=== PATIENT | male | born 1980 | race Caucasian/White ===

== ENCOUNTER 2016-06-26 20:33 | Inpatient (IN) | payer MEDICARE, OTHER ==
[~2016-06-26] VITALS: Ht 175.3 cm; Wt 87.5 kg
[~2016-06-26 20:33] MED LIST: AMOX125T PO; ASCO500 PO; BACL10TA PO; DIAZ5 PO; DULO60CA44 PO; ENOX100D5 SQ; ESOM20CA31 PO; GABA400C; GABA800T PO; MULT-1192
[2016-06-26] MEDS ORDERED: PROM25VI IM (21:01)
[2016-06-26] MEDS ORDERED: ENOX120D SQ (21:01)
[2016-06-26] MEDS ORDERED: CLON2TAB4 PO (21:01)
[2016-06-26] MEDS ORDERED: GABA-326 PO (21:01)
[2016-06-26] MEDS ORDERED: DICY20TA11 PO (21:01)
[2016-06-26] MEDS ORDERED: FLUT16H NASAL (21:01)
[2016-06-26] MEDS ORDERED: SODIUM CHLORIDE 0.9% 1,000 ML IV ONE (21:45)
[2016-06-26] MEDS ORDERED: MORPHINE SULFATE 4 MG/ML SYRINGE IVP ONE (21:45)
[2016-06-26] MEDS ORDERED: PROMETHAZINE HCL 25 MG/ML VIAL IM ONE (21:45)
[2016-06-26 21:46] LABS: BASOPHILS % (AUTO) 0.3 % (0.0-2.0); EOSINOPHILS % (AUTO) 1.4 % (1.0-6.0); HEMOGLOBIN 12.8 g/dL (13.5-17.5); LYMPHOCYTES # (AUTO) 1.3 K/uL (1.0-4.8); LYMPHOCYTES % (AUTO) 20.4 % (22.0-44.0); MEAN CORPUSCULAR HEMOGLOBIN 27.8 pg (26.0-34.0); MEAN CORPUSCULAR HGB CONC 32.8 G/dL (31.0-37.0); MEAN CORPUSCULAR VOLUME 85 fL (80-100); MONOCYTES # (AUTO) 0.3 K/uL (0.1-1.0); MONOCYTES % (AUTO) 5.6 % (2.0-9.0); NEUTROPHILS # (AUTO) 4.5 K/uL (1.8-7.7); NEUTROPHILS % (AUTO) 72.3 % (40.0-70.0); PLATELET COUNT (AUTO) 238 K/uL (150-450); RED CELL DISTRIBUTION WIDTH 16.3 % (11.5-14.5); WHITE BLOOD COUNT (AUTO) 6.2 K/uL (4.5-11.0)
[2016-06-26] MEDS ORDERED: HYDROmorphone 2 MG/ML SYRINGE IVP ONE (22:15)
[2016-06-26 22:22] LABS: ANION GAP 11 mmol/L (8-16); CALCIUM, TOTAL 9.1 mg/dL (8.8-10.5); CARBON DIOXIDE 28 mmol/L (22-29); CHLORIDE 106 mmol/L (98-107); CREATININE 0.79 mg/dL (0.60-1.30); GLOMERULAR FILTR. RATE CALC > 60 mL/min (>60); POTASSIUM 4.1 mmol/L (3.5-5.1); SODIUM SERUM 145 mmol/L (136-145); UREA NITROGEN, BLOOD 8 mg/dL (7-18)
[2016-06-26 22:26] LABS: APPEARANCE,URINE CLOUDY (CLEAR); GLUCOSE, URINE (UA) NEGATIVE (NEGATIVE); KETONES,URINE NEGATIVE (NEGATIVE); LEUKOCYTE ESTERASE ,URINE LARGE (NEGATIVE); OCCULT BLOOD,URINE NEGATIVE (NEGATIVE); PH,URINE 5.5 (5.0-8.0); PROTEIN,URINE NEGATIVE (NEGATIVE)
[2016-06-26 22:37] LABS: ALANINE AMINOTRANSFERASE 30 U/L (12-78); ASPARTATE AMINOTRANSFERASE 17 U/L (15-37); BILIRUBIN,TOTAL 0.5 mg/dL (0.1-1.0); TOTAL PROTEIN, SERUM 8.3 g/dL (6.4-8.2)
[2016-06-26] MEDS ORDERED: IOVERSOL 320 MG/ML 100 ML VIAL ONE (22:44)
[2016-06-26] MEDS ORDERED: SODIUM CHLORIDE 0.9% 100 ML ONE (22:44)
[2016-06-26 22:48] LABS: RBC,URINE 0-2 /HPF (0-2); WBC,URINE 51-100 /HPF (0-5)
[2016-06-26 22:49] LABS: SQUAMOUS EPITHELIAL CELL,UR Rare /LPF (None Seen)
[2016-06-27] MEDS ORDERED: CefTRIAXone 1 GM/DEXTROSE 50 ML IV ONE
[2016-06-27] MEDS ORDERED: ACETAMINOPHEN 325 MG TABLET PO PRN (00:15)
[2016-06-27] MEDS ORDERED: 0.9% SODIUM CHLORIDE 10 ML SYRINGE IVP PRN ×2 (00:15→12:15)
[2016-06-27] MEDS: HYDROmorphone 2 MG/ML SYRINGE IVP PRN ×6 (02:08→21:38)
[2016-06-27 08:24] VITALS: BP 106/64
[2016-06-27] MEDS ORDERED: HYDROmorphone 2 MG/ML SYRINGE IVP PRN (09:00)
[2016-06-27] MEDS ORDERED: PANTOPRAZOLE SODIUM 40 MG DR TABLET PO SCH (11:00)
[2016-06-27] MEDS: ENOXAPARIN SODIUM 60 MG/0.6 ML PF SYRINGE SQ SCH (11:00)
[2016-06-27] MEDS: DICYCLOMINE HCL 20 MG TABLET PO SCH ×3 (11:01→21:37)
[2016-06-27] MEDS: ClonazePAM 1 MG TABLET PO SCH ×4 (11:02→21:36)
[2016-06-27] MEDS: BACLOFEN 10 MG TABLET PO SCH ×4 (11:02→21:33)
[2016-06-27] MEDS: DULoxetine HCL 60 MG CAPSULE PO SCH (11:03)
[2016-06-27] MEDS ORDERED: PROMETHAZINE HCL 25 MG/ML VIAL IM SCH (11:15)
[2016-06-27 11:50] VITALS: BP 113/75
[2016-06-27 11:52] VITALS: BP 113/75
[2016-06-27] MEDS ORDERED: DULoxetine HCL 60 MG CAPSULE PO SCH (12:15)
[2016-06-27] MEDS ORDERED: [UNRECOGNIZED DRUG - OTHER] SQ SCH (12:15)
[2016-06-27] MEDS: DOCUSATE SODIUM 100 MG CAPSULE PO SCH ×2 (12:15→21:00)
[2016-06-27] MEDS ORDERED: OxyCODONE HCL/ACETAMINOPHEN 5-325 MG TABLET PO PRN ×2 (12:15)
[2016-06-27] MEDS: PANTOPRAZOLE SODIUM 40 MG/VIAL IVP SCH (12:15)
[2016-06-27] MEDS: FLUTICASONE PROPIONATE 50 MCG/SPRAY 16 GM NASAL SPRAY NASAL SCH ×2 (12:30→21:00)
[2016-06-27] MEDS: ASCORBIC ACID 500 MG TABLET PO SCH (12:31)
[2016-06-27] MEDS: PROMETHAZINE HCL 25 MG/ML VIAL IM PRN (12:31)
[2016-06-27] MEDS ORDERED: GABAPENTIN 800 MG PO SCH (13:00)
[2016-06-27] MEDS ORDERED: BACLOFEN 10 MG TABLET PO SCH (13:00)
[2016-06-27] MEDS: SODIUM CHLORIDE 0.9% 1,000 ML IV SCH ×2 (13:11→21:37)
[2016-06-27] MEDS: GABAPENTIN 400 MG CAPSULE PO SCH ×3 (13:31→21:33)
[2016-06-27 15:32] VITALS: BP 111/70
[2016-06-27] MEDS ORDERED: DICYCLOMINE HCL 20 MG TABLET PO SCH (16:00)
[2016-06-27] MEDS ORDERED: PROMETHAZINE HCL 25 MG TABLET PO SCH (16:00)
[2016-06-27 19:51] VITALS: BP 106/56
[2016-06-27] MEDS ORDERED: FLUTICASONE PROPIONATE 50 MCG/SPRAY 16 GM NASAL SPRAY NASAL SCH (21:00)
[2016-06-27] MEDS ORDERED: CefTRIAXone 1 GM/DEXTROSE 50 ML IV SCH (21:15)
[2016-06-27] MEDS ORDERED: ZOLPIDEM TARTRATE 10 MG TABLET PO PRN (21:30)
[2016-06-27 23:45] VITALS: BP 112/62
[2016-06-28] MEDS: CefTRIAXone 1 GM/DEXTROSE 50 ML IV SCH ×2 (00:20→23:24)
[2016-06-28] MEDS: HYDROmorphone 2 MG/ML SYRINGE IVP PRN ×6 (01:01→21:26)
[2016-06-28 09:00] LABS: BASOPHILS # (AUTO) 0.01 K/uL (0.00-0.20); BASOPHILS % (AUTO) 0.1 % (0.0-2.0); EOSINOPHILS # (AUTO) 0.07 K/uL (0.00-0.70); EOSINOPHILS % (AUTO) 0.95 % (1.0-6.0); HEMATOCRIT 37.3 % (41-53); HEMOGLOBIN 12.6 g/dL (13.5-17.5); LYMPHOCYTES # (AUTO) 0.7 K/uL (1.0-4.8); LYMPHOCYTES % (AUTO) 9.1 % (22.0-44.0); MEAN CORPUSCULAR HEMOGLOBIN 28.3 pg (26.0-34.0); MEAN CORPUSCULAR HGB CONC 33.7 G/dL (31.0-37.0); MEAN CORPUSCULAR VOLUME 84 fL (80-100); MONOCYTES # (AUTO) 0.3 K/uL (0.1-1.0); MONOCYTES % (AUTO) 3.5 % (2.0-9.0); NEUTROPHILS # (AUTO) 6.7 K/uL (1.8-7.7); PLATELET COUNT (AUTO) 175 K/uL (150-450); RED BLOOD CELL COUNT(AUTO) 4.45 MIL/uL (4.50-5.90); RED CELL DISTRIBUTION WIDTH 16.3 % (11.5-14.5); WHITE BLOOD COUNT (AUTO) 7.7 K/uL (4.5-11.0)
[2016-06-28] MEDS: DOCUSATE SODIUM 100 MG CAPSULE PO SCH ×2 (09:00→20:16)
[2016-06-28] MEDS: FLUTICASONE PROPIONATE 50 MCG/SPRAY 16 GM NASAL SPRAY NASAL SCH ×2 (09:00→20:16)
[2016-06-28 09:01] LABS: NEUTROPHILS % (AUTO) 86.4 % (40.0-70.0); RBC MORPHOLOGY COMMENT NORMAL RBC MORPH
[2016-06-28 09:11] VITALS: BP 114/76
[2016-06-28] MEDS: DULoxetine HCL 60 MG CAPSULE PO SCH (09:11)
[2016-06-28 09:12] LABS: ANION GAP 9 mmol/L (8-16); CALCIUM, TOTAL 8.9 mg/dL (8.8-10.5); CARBON DIOXIDE 27 mmol/L (22-29); CHLORIDE 107 mmol/L (98-107); CREATININE 0.63 mg/dL (0.60-1.30); GLOMERULAR FILTR. RATE CALC > 60 mL/min (>60); POTASSIUM 3.8 mmol/L (3.5-5.1); SODIUM SERUM 143 mmol/L (136-145); UREA NITROGEN, BLOOD 5 mg/dL (7-18)
[2016-06-28] MEDS: ClonazePAM 1 MG TABLET PO SCH ×4 (09:12→20:16)
[2016-06-28] MEDS: DICYCLOMINE HCL 20 MG TABLET PO SCH ×3 (09:12→20:16)
[2016-06-28] MEDS: GABAPENTIN 400 MG CAPSULE PO SCH ×4 (09:12→20:17)
[2016-06-28] MEDS: ASCORBIC ACID 500 MG TABLET PO SCH (09:12)
[2016-06-28] MEDS: BACLOFEN 10 MG TABLET PO SCH ×4 (09:12→20:17)
[2016-06-28] MEDS: ENOXAPARIN SODIUM 60 MG/0.6 ML PF SYRINGE SQ SCH (09:13)
[2016-06-28] MEDS: PANTOPRAZOLE SODIUM 40 MG/VIAL IVP SCH (09:13)
[2016-06-28] MEDS: MUPIROCIN CALCIUM 2% 22 GM OINTMENT TP SCH ×2 (12:05→20:17)
[2016-06-28 12:36] VITALS: BP 110/61
[2016-06-28 16:01] VITALS: BP 110/68
[2016-06-28] MEDS: SODIUM CHLORIDE 0.9% 1,000 ML IV SCH (17:27)
[2016-06-28 20:35] VITALS: BP 125/67
[2016-06-29 00:21] VITALS: BP 96/62
[2016-06-29] MEDS: SODIUM CHLORIDE 0.9% 1,000 ML IV SCH ×3 (00:36→17:19)
[2016-06-29] MEDS: HYDROmorphone 2 MG/ML SYRINGE IVP PRN ×2 (00:36→03:59)
[2016-06-29] MEDS: MetroNIDAZOLE 500 MG TABLET PO SCH ×3 (03:59→20:00)
[2016-06-29 04:15] VITALS: BP 108/62
[2016-06-29] MEDS ORDERED: OxyCODONE HCL/ACETAMINOPHEN 10-325 MG TABLET PO PRN (04:45)
[2016-06-29] MEDS: FLUTICASONE PROPIONATE 50 MCG/SPRAY 16 GM NASAL SPRAY NASAL SCH ×2 (09:00→20:57)
[2016-06-29] MEDS: DOCUSATE SODIUM 100 MG CAPSULE PO SCH ×2 (09:00→20:59)
[2016-06-29] MEDS: ENOXAPARIN SODIUM 60 MG/0.6 ML PF SYRINGE SQ SCH ×2 (09:00→09:17)
[2016-06-29] MEDS: DICYCLOMINE HCL 20 MG TABLET PO SCH ×3 (09:17→21:00)
[2016-06-29] MEDS: ClonazePAM 1 MG TABLET PO SCH ×4 (09:17→20:58)
[2016-06-29] MEDS: ASCORBIC ACID 500 MG TABLET PO SCH (09:18)
[2016-06-29] MEDS: DULoxetine HCL 60 MG CAPSULE PO SCH (09:18)
[2016-06-29] MEDS: GABAPENTIN 400 MG CAPSULE PO SCH ×4 (09:18→21:00)
[2016-06-29] MEDS: BACLOFEN 10 MG TABLET PO SCH ×4 (09:18→20:58)
[2016-06-29] MEDS: MUPIROCIN CALCIUM 2% 22 GM OINTMENT TP SCH ×2 (09:19→21:00)
[2016-06-29] MEDS: OxyCODONE HCL/ACETAMINOPHEN 10-325 MG TABLET PO PRN ×4 (09:19→20:59)
[2016-06-29] MEDS: PANTOPRAZOLE SODIUM 40 MG/VIAL IVP SCH (09:19)
[2016-06-29 12:00] VITALS: BP 90/58
[2016-06-29 16:00] VITALS: BP 110/66
[2016-06-29 19:21] VITALS: BP 103/49
[2016-06-29] MEDS: CefTRIAXone 1 GM/DEXTROSE 50 ML IV SCH (23:08)
[2016-06-29 23:33] VITALS: BP 97/50
[2016-06-30] MEDS: SODIUM CHLORIDE 0.9% 1,000 ML IV SCH ×3 (00:15→20:18)
[2016-06-30] MEDS: MetroNIDAZOLE 500 MG TABLET PO SCH ×3 (04:00→20:00)
[2016-06-30] MEDS: ASCORBIC ACID 500 MG TABLET PO SCH (09:00)
[2016-06-30] MEDS: FLUTICASONE PROPIONATE 50 MCG/SPRAY 16 GM NASAL SPRAY NASAL SCH ×2 (09:00→21:00)
[2016-06-30] MEDS: DOCUSATE SODIUM 100 MG CAPSULE PO SCH ×2 (09:00→21:00)
[2016-06-30] MEDS: ClonazePAM 1 MG TABLET PO SCH ×4 (09:26→20:19)
[2016-06-30] MEDS: BACLOFEN 10 MG TABLET PO SCH ×4 (09:26→20:20)
[2016-06-30] MEDS: PANTOPRAZOLE SODIUM 40 MG/VIAL IVP SCH (09:26)
[2016-06-30] MEDS: ENOXAPARIN SODIUM 60 MG/0.6 ML PF SYRINGE SQ SCH (09:26)
[2016-06-30] MEDS: OxyCODONE HCL/ACETAMINOPHEN 10-325 MG TABLET PO PRN ×4 (09:27→22:10)
[2016-06-30] MEDS: DULoxetine HCL 60 MG CAPSULE PO SCH (09:27)
[2016-06-30] MEDS: DICYCLOMINE HCL 20 MG TABLET PO SCH ×3 (09:27→20:19)
[2016-06-30] MEDS: MUPIROCIN CALCIUM 2% 22 GM OINTMENT TP SCH ×2 (09:27→20:20)
[2016-06-30] MEDS: GABAPENTIN 400 MG CAPSULE PO SCH ×4 (09:27→20:20)
[2016-06-30] MEDS: PROMETHAZINE HCL 25 MG/ML VIAL IM PRN ×2 (10:06→22:21)
[2016-06-30 11:39] VITALS: BP 118/79
[2016-06-30 15:56] VITALS: BP 107/66
[2016-06-30 20:04] VITALS: BP 99/52
[2016-06-30 22:07] VITALS: BP 103/63
[2016-06-30] MEDS: CefTRIAXone 1 GM/DEXTROSE 50 ML IV SCH (22:51)
[2016-06-30 23:05] VITALS: BP 105/64
[2016-07-01] MEDS: MetroNIDAZOLE 500 MG TABLET PO SCH ×2 (04:00→12:00)
[2016-07-01 07:33] LABS: STOOL H. PYLORI ANTIGEN Negative (Negative)
[2016-07-01] MEDS: ASCORBIC ACID 500 MG TABLET PO SCH (09:00)
[2016-07-01] MEDS: ENOXAPARIN SODIUM 60 MG/0.6 ML PF SYRINGE SQ SCH (09:00)
[2016-07-01] MEDS: DOCUSATE SODIUM 100 MG CAPSULE PO SCH ×2 (09:00→20:26)
[2016-07-01] MEDS: SODIUM CHLORIDE 0.9% 1,000 ML IV SCH ×2 (09:22→23:58)
[2016-07-01 09:23] VITALS: BP 112/77
[2016-07-01] MEDS: BACLOFEN 10 MG TABLET PO SCH ×4 (09:23→20:20)
[2016-07-01] MEDS: PANTOPRAZOLE SODIUM 40 MG/VIAL IVP SCH (09:23)
[2016-07-01] MEDS: FLUTICASONE PROPIONATE 50 MCG/SPRAY 16 GM NASAL SPRAY NASAL SCH ×2 (09:23→20:19)
[2016-07-01] MEDS: DICYCLOMINE HCL 20 MG TABLET PO SCH ×3 (09:24→20:19)
[2016-07-01] MEDS: DULoxetine HCL 60 MG CAPSULE PO SCH (09:24)
[2016-07-01] MEDS: ClonazePAM 1 MG TABLET PO SCH ×4 (09:24→20:20)
[2016-07-01] MEDS: MUPIROCIN CALCIUM 2% 22 GM OINTMENT TP SCH ×2 (09:25→20:22)
[2016-07-01] MEDS: GABAPENTIN 400 MG CAPSULE PO SCH ×4 (09:25→20:19)
[2016-07-01] MEDS: OxyCODONE HCL/ACETAMINOPHEN 10-325 MG TABLET PO PRN ×4 (09:40→21:20)
[2016-07-01] MEDS: PROMETHAZINE HCL 25 MG/ML VIAL IM PRN (10:09)
[2016-07-01 15:33] VITALS: BP 119/76
[2016-07-01] MEDS: VANCOMYCIN HCL 250 MG/5 ML SOLUTION ORAL.SYG PO SCH ×2 (17:36→20:20)
[2016-07-01 19:29] VITALS: BP 106/56
[2016-07-01] MEDS: CefTRIAXone 1 GM/DEXTROSE 50 ML IV SCH (23:58)
[2016-07-02 00:04] VITALS: BP 96/55
[2016-07-02] MEDS: OxyCODONE HCL/ACETAMINOPHEN 10-325 MG TABLET PO PRN ×2 (01:17→09:09)
[2016-07-02] MEDS ORDERED: METR500 PO (07:22)
[2016-07-02] MEDS ORDERED: CEPH500 PO (07:23)
[2016-07-02] MEDS ORDERED: PERCT PO (07:23)
[2016-07-02] MEDS: ASCORBIC ACID 500 MG TABLET PO SCH ×2 (09:00→09:17)
[2016-07-02] MEDS: DOCUSATE SODIUM 100 MG CAPSULE PO SCH ×2 (09:00→09:17)
[2016-07-02] MEDS: ENOXAPARIN SODIUM 60 MG/0.6 ML PF SYRINGE SQ SCH (09:00)
[2016-07-02] MEDS: VANCOMYCIN HCL 250 MG/5 ML SOLUTION ORAL.SYG PO SCH (09:08)
[2016-07-02] MEDS: PROMETHAZINE HCL 25 MG/ML VIAL IM PRN (09:09)
[2016-07-02] MEDS: MUPIROCIN CALCIUM 2% 22 GM OINTMENT TP SCH (09:10)
[2016-07-02 09:11] VITALS: BP 112/73
[2016-07-02] MEDS: BACLOFEN 10 MG TABLET PO SCH (09:17)
[2016-07-02] MEDS: ClonazePAM 1 MG TABLET PO SCH (09:17)
[2016-07-02] MEDS: PANTOPRAZOLE SODIUM 40 MG/VIAL IVP SCH (09:17)
[2016-07-02] MEDS: GABAPENTIN 400 MG CAPSULE PO SCH (09:18)
[2016-07-02] MEDS: DULoxetine HCL 60 MG CAPSULE PO SCH (09:19)
[2016-07-02] MEDS: DICYCLOMINE HCL 20 MG TABLET PO SCH (09:19)
[2016-07-02] MEDS: FLUTICASONE PROPIONATE 50 MCG/SPRAY 16 GM NASAL SPRAY NASAL SCH (09:19)
[2016-07-02] MEDS ORDERED: HYDROmorphone 2 MG/ML SYRINGE IM ONE (11:15)
[2016-07-02 11:26] VITALS: BP 114/75
== END 2016-07-02 13:20 | disposition home or self-care (01) | DRG 372 ==
LOC: EMS 20:35 → 6N 06-27 05:45
PROVIDERS: ADMIT Internal Medicine; ATTEND Internal Medicine
DX: A04.7 Enterocolitis due to Clostridium difficile (principal); G82.20 Paraplegia, unspecified; N39.0 Urinary tract infection, site not specified; K64.9 Unspecified hemorrhoids; B95.61 Methicillin susceptible Staphylococcus aureus infection as the cause of diseases classified elsewhere; Z79.899 Other long term (current) drug therapy; Z88.8 Allergy status to other drugs, medicaments and biological substances; Z86.14 Personal history of Methicillin resistant Staphylococcus aureus infection; Z87.440 Personal history of urinary (tract) infections; Z93.3 Colostomy status; Z87.828 Personal history of other (healed) physical injury and trauma; Z90.49 Acquired absence of other specified parts of digestive tract; Z98.890 Other specified postprocedural states
CPT/HCPCS: 74177; 87045; 87081; 87086; 87324; 87338; 87449; 87798; 89055; 96361; 96365; 96372; 96375; 96376; 99285; C9113; J0696; J1170; J1650; J2550; J7030; J7050

== ENCOUNTER 2016-07-22 15:45 | Emergency (ER) | payer MEDICARE, OTHER ==
[~2016-07-22] VITALS: Ht 177.8 cm; Wt 88.0 kg
[~2016-07-22 15:45] MED LIST changes: -AMOX125T PO; +CEPH500 PO; +CLON2TAB4 PO; -DIAZ5 PO; +DICY20TA11 PO; -ENOX100D5 SQ; +ENOX120D SQ; -ESOM20CA31 PO; +FLUT16H NASAL; +GABA-326 PO; -GABA400C; -GABA800T PO; +METR500 PO; +PERCT PO; +PROM25VI IM
[2016-07-22] MEDS ORDERED: IBUP-1547 PO (16:18)
[2016-07-22 16:37] LABS: BASOPHILS # (AUTO) 0.03 K/uL (0.00-0.20); BASOPHILS % (AUTO) 0.4 % (0.0-2.0); EOSINOPHILS # (AUTO) 0.07 K/uL (0.00-0.70); EOSINOPHILS % (AUTO) 0.95 % (1.0-6.0); HEMATOCRIT 36.4 % (41-53); HEMOGLOBIN 12.6 g/dL (13.5-17.5); LYMPHOCYTES # (AUTO) 1.1 K/uL (1.0-4.8); LYMPHOCYTES % (AUTO) 13.9 % (22.0-44.0); MEAN CORPUSCULAR HEMOGLOBIN 28.8 pg (26.0-34.0); MEAN CORPUSCULAR HGB CONC 34.6 G/dL (31.0-37.0); MEAN CORPUSCULAR VOLUME 83 fL (80-100); MONOCYTES # (AUTO) 0.4 K/uL (0.1-1.0); MONOCYTES % (AUTO) 4.9 % (2.0-9.0); NEUTROPHILS % (AUTO) 79.8 % (40.0-70.0); PLATELET COUNT (AUTO) 242 K/uL (150-450); RED BLOOD CELL COUNT(AUTO) 4.38 MIL/uL (4.50-5.90); RED CELL DISTRIBUTION WIDTH 16.3 % (11.5-14.5); WHITE BLOOD COUNT (AUTO) 7.5 K/uL (4.5-11.0)
[2016-07-22 16:53] LABS: ANION GAP 11 mmol/L (8-16); CALCIUM, TOTAL 9.4 mg/dL (8.8-10.5); CARBON DIOXIDE 29 mmol/L (22-29); CHLORIDE 102 mmol/L (98-107); CREATININE 0.72 mg/dL (0.60-1.30); GLOMERULAR FILTR. RATE CALC > 60 mL/min (>60); POTASSIUM 3.6 mmol/L (3.5-5.1); SODIUM SERUM 142 mmol/L (136-145); UREA NITROGEN, BLOOD 12 mg/dL (7-18)
[2016-07-22 16:58] LABS: ALANINE AMINOTRANSFERASE 55 U/L (12-78); ALBUMIN 4.1 g/dL (3.4-5.0); ASPARTATE AMINOTRANSFERASE 19 U/L (15-37); BILIRUBIN,TOTAL 0.6 mg/dL (0.1-1.0)
[2016-07-22] MEDS ORDERED: PROMETHAZINE HCL 50 MG/ML VIAL IM ONE (17:15)
[2016-07-22] MEDS ORDERED: SODIUM CHLORIDE 0.9% 500 ML IV ONE (17:15)
[2016-07-22] MEDS ORDERED: DiphenhydrAMINE HCL 50 MG/ML VIAL IVP ONE (17:15)
[2016-07-22] MEDS ORDERED: MORPHINE SULFATE 4 MG/ML SYRINGE IVP ONE (17:15)
[2016-07-22 18:40] LABS: APPEARANCE,URINE CLOUDY (CLEAR); GLUCOSE, URINE (UA) NEGATIVE (NEGATIVE); KETONES,URINE NEGATIVE (NEGATIVE); OCCULT BLOOD,URINE NEGATIVE (NEGATIVE); PH,URINE 5.5 (5.0-8.0); PROTEIN,URINE NEGATIVE (NEGATIVE)
[2016-07-22 18:43] LABS: ADD UA MICROSCOPIC YES; LEUKOCYTE ESTERASE ,URINE SMALL (NEGATIVE)
[2016-07-22 18:44] LABS: AMORPHOUS SEDIMENT,UR Few /LPF (None Seen); RBC,URINE 0-2 /HPF (0-2); SQUAMOUS EPITHELIAL CELL,UR Rare /LPF (None Seen)
[2016-07-22] MEDS ORDERED: CIPROFLOXACIN 400 MG/D5% WATER 200 ML IV ONE (20:00)
[2016-07-22] MEDS ORDERED: DONNATAL/LIDOCAINE/MAALOX 55 ML BOTTLE PO ONE (20:15)
[2016-07-22 21:32] VITALS: BP 116/72
== END 2016-07-22 21:34 | disposition home or self-care (01) ==
LOC: EMS 15:46
DX: N39.0 Urinary tract infection, site not specified (principal); G82.20 Paraplegia, unspecified; G89.4 Chronic pain syndrome; B96.89 Other specified bacterial agents as the cause of diseases classified elsewhere; Z88.2 Allergy status to sulfonamides; Z88.8 Allergy status to other drugs, medicaments and biological substances; Z86.14 Personal history of Methicillin resistant Staphylococcus aureus infection
CPT/HCPCS: 36415; 80053; 81001; 83690; 85025; 87077; 87086; 87324; 87449; 96361; 96365; 96372; 96375; 99285; J0744; J1200; J2270; J2550; J7040